=== PATIENT | male | born 1960 | race Caucasian/White ===

== ENCOUNTER 2025-03-30 21:33 | Emergency (ER) | payer MEDICARE, MEDICAID, SELFPAY ==
[2025-03-30] VITALS (13 sets, daily range): BP systolic 114–148; BP diastolic 68–78; PULSE 92; RESP 16; TEMP 36.6; O2SAT 97–100
--- NOTE | ~2025-03-30 | XR_ITS ---
HISTORY: fall COMPARISON: None TECHNIQUE: 3 views of the right elbow were performed FINDINGS: No acute displaced fracture is identified. No elevation of the anterior or posterior fat pads are identified to suggest a supracondylar fracture . Overlying soft tissues are unremarkable. Bone mineralization is age-appropriate. IMPRESSION: No acute fracture or dislocation, as detailed above Reviewed, dictated and finalized at location A.
--- NOTE | ~2025-03-30 | XR_ITS ---
HISTORY: fall COMPARISON: None TECHNIQUE: 3 views of the thoracic spine were performed FINDINGS: 16 degrees of levoscoliotic curvature of the thoracic spine is present. Diffuse bony demineralization is also noted. No acute compression fracture is present. Biconcave vertebral body shape within the mid to upper thoracic spine. IMPRESSION: Diffuse bony demineralization with findings suggesting osteoporosis versus sickle cell d isease. Reviewed, dictated and finalized at location A. IMPRESSION: Diffuse bony demineralization with findings suggesting osteoporosi s versus sickle cell disease.
--- NOTE | ~2025-03-30 | XR_ITS ---
HISTORY: fall COMPARISON: None. TECHNIQUE: 2 view lumbar spine. FINDINGS: 9 mm of anterolisthesis of L5 onto L6 is identified. Remaining lumbar vertebral bodies are otherwise normally aligned. There are 6 non-rib bearing lumbar vertebral bodies. Disc spaces and vertebral body heights are well maintained. There are no lytic or sclerotic lesions. Paraspinal soft tissues demonstrate calcification of the infrarenal abdominal aorta. Osteophyte formation and disc space narrowing is identified at the level of L2/L3, L3/L4 and L4/L5 Significant facet arthropathy is also noted. No discrete fracture is appreciated IMPRESSION: Degenerative disease, without acute fracture identified. Reviewed, dictated and finalized at location A.
--- OUTSIDE RECORDS SUMMARY | 2025-03-30 23:56 | XMS_ITS | Clinical Summary ---
Author Organization [facility] Address [address], [facility] [address] [place] [address] Phone Care Team Providers Care Carpentry Specialist Name Role Phone Gina Cutler DPM Unavailable [phone] Lamont Freeman MD Unavailable [phone] Allergies No known active allergies Medications * This document contains information received from the source organization and may not represent a complete record from that organization. risperiDONE (RISPERDAL) 2 MG Tablet Take 1 Tablet by mouth 2 times daily. 60 Tablet 6 1 Active Additional Information Patient not taking.Reported on 11/12/2023 lithium 300 MG Capsule 2 Active Sofosbuvir-Velp atasvir (Epclusa) 400-100 MG TabletIndicatio ns:Chronic hepatitis C without hepatic coma (HCC) Take 1 Tablet by mouth daily (with lunch). 84 Tablet 2 Active Additional Information Patient not taking.Reported on 11/12/2023 famotidine (PEPCID) 40 MG Tablet Take 1 Tablet by mouth 2 times daily. 180 Tablet 9 2 Active Additional Information Patient not taking.Reported on 11/12/2023 OLANZapine (ZYPREXA) 10 MG Tablet Take 10 mg by mouth nightly. 3 Active sildenafil citrate (VIAGRA) 100 MG Tablet Take 1 Tablet by mouth as needed for Erectile Dysfunction. 10 Tablet 3 Active Additional Information Patient not taking.Reported on 11/12/2023 cyclobenzaprine (FLEXERIL) 10 MG Tablet Take 1 tablet by mouth three times daily as needed for muscle spasm 90 Tablet 3 Active Additional Information Patient not taking.Reported on 11/12/2023 pantoprazole (PROTONIX) 40 MG Tablet Delayed Response Take 1 Tablet by mouth daily. 30 Tablet 5 Active Additional Information Patient not taking.Reported on 10/26/2024 Active Problems Problem Noted Date Diagnosed Date Chronic hepatitis C without hepatic coma 021 Positive hepatitis C antibody test 07/14/2021 Resolved Problems Problem Noted Date Diagnosed Date Resolved Date Loyola's esophagus with dysplasia 07/14/2021 09/17/2022 Immunizations Immunization Administration Dates Next Due Covid-19 Vaccine, Vector-nr, Rs-ad26, Pf, 0.5 Ml ([employer]) 12/17/2020 Influenza Vaccine, Quadrivalent, PF 10/20/2022,1 08/26/2020 Family History Medical History Relation Name Comments No Known Problems Brother Cancer Father Hypertension Father No Known Problems Maternal Aunt No Known Problems Maternal Grandfather No Known Problems Maternal Grandmother No Known Problems Maternal Uncle Asthma Mother Hypertension Mother No Known Problems Other No Known Problems Paternal Aunt No Known Problems Paternal Grandfather No Known Problems Paternal Grandmother No Known Problems Paternal Uncle No Known Problems Sister Relation Name Status Comments Brother Father Maternal Aunt Maternal Grandfather Maternal Grandmother Maternal Uncle Mother Other Paternal Aunt Paternal Grandfather Paternal Grandmother Paternal Uncle Sister Social History Tobacco Use Types Packs/Day Years Used Date Smoking Tobacco: Every Day Cigarettes Smokeless Tobacco: Never Tobacco Cessation:Ready to Q uit: No; Counseling Given: No Alcohol Use Standard Drinks/Week Comments Not Currently 0 (1 standard drink = 0.6 oz pur e alcohol) PHQ-2 Answer Date Recorded Total Score - Questions 1-9 7 09/24 Sexually Active Control Partners Comments Not Currently Sex and Gender Information Value Date Recorded Sex Assigned at Not on file Legal Sex Male 7:50 PM CDT Gender Identity Not on file Sexual Orientation Not on file Last Filed Vital Signs Vital Sign Reading Time Taken Comments Blood Pressure 114/72 09/22/2024 7:00 PM ORGAN GRINDER Pulse 85 09/22/2024 7:00 PM ORGAN GRINDER Temperature 36.4 C (97.6 F) 09/22/2024 2:31 PM ORGAN GRINDER Respiratory Rate 15 09/22/2024 5:45 PM ORGAN GRINDER Oxygen Saturation 97% 09/22/2024 7:00 PM ORGAN GRINDER Inhaled Oxygen Concentration - - Weight 54.6 kg (120 lb 5.9 oz) 09/22/2024 2:31 P M ORGAN GRINDER Height 160 cm (5' 3) 09/22/2024 2:31 PM ORGAN GRINDER Body Mass Index 21.32 09/22/2024 2:31 PM ORGAN GRINDER Plan of Treatment Health Maintenance Due Date Last Done Comments TdaP Immunization 1960 Pneumococcal Immunization (5 0+ years) (1 of 2 - PCV) 1977 Cologuard 2003 Zoster Immunization (1 of 2) 2008 Hepatitis B Immunization (1 of 3 - Risk 3-dose series) 2018 Respiratory Syncytial Virus (RSV) Immunization (Adult) (1 - Risk 60-74 years 1-dose series) 2018 AAA Screening Ultrasound 2023 SARS-COV-2 Immunization ( - 2023- season) 2024 07/01/2021, 12/17/2020 Colonoscopy 08/13/2024 08/13/2021 Colorectal Cancer Screening 09/23/2024 Influenza Immunization (#1) 04/23/202509/24, 06/26/2021 Immunochemical Fecal Occult Blood 09/22/2025 09/22/2024 PSA Discussion Completed 06/26/2021 Human Papillomavirus (HPV) Immunization Aged Out No longer eligible b ased on patient's age to complete this topic Meningococcal Immunization (ACWY) Aged Out No longer eligible b ased on patient's age to complete this topic Rotavirus Immunization Aged Out No lo nger eligible based on patient's age to complete this topic Procedures Procedure Name Priority Date/Time Associated Diagnosis Comments STOOL, OCCULT BLOOD, DIAGNOSTIC, VIA GUAIAC STAT 09/22/2024 6:13 PM ORGAN GRINDER PSA SCREEN Today 06/26/2021 10:43 AM CDT Screening for prostate cancer from Last 3 Months or Most Recently Relevant to Health Maintenance Results * Stool, Occult Blood, Diagnostic (09/22/2024 6:13 PM ORGAN GRINDER) OCCULT BLOOD DIAG Negative Negative 09/22/2024 6:43 PM ORGAN GRINDER [facility] Stool STOOL SPECIMEN / Unknown Non-Phlebotomy Collection / Unknown 09/22/2024 6:13 PM ORGAN GRINDER 09/22/2024 6:39 PM ORGAN GRINDER Narrative [facility] - 09/22/2024 6:43 PM ORGAN GRINDER Carlo Rosen DO BODY FLUIDS & STOOLS OR DERABLES Final Result Performing Organization Address City/[facility]/ZIP Co de Phone Number [facility] [address] [place] [address] * PSA SCREEN (06/26/2021 10:43 AM CDT) Pathologist [facility] PSA SCREEN, TOTAL 3.33 <=4.00 ng/mL 06/26/2021 12:58 PM CDT [facility] Blood Venipuncture / Unknown 06/26/2021 10:43 AM CDT 06/26/2021 10:43 AM CDT Narrative [facility] - 06/26/2021 12:58 PM CDT PSA NOTE: The PSA value should be used in conjunction with information available from clinical evaluation and other diagnostic procedures. us Jamil Garcia MD CHEMISTRY ORDERABLES Final Re sult [facility] [address] [place] [address] from Last 3 Months or Most Recently Relevant to Health Maintenance Insurance MEDICAID [place] MEDICARE C [employer] Care Teams Carpentry Specialist Relationship Specialty Start Date End Date Gina Cutler DPM Consulting Physician Podiatry 07/07/22 Lamont Freeman MD [address] [place] [address] Consulting Physician Gastroenterology 09/17/22
--- OUTSIDE RECORDS SUMMARY | 2025-03-30 23:56 | XMS_ITS ---
Author Organization [facility] Address [address] [place] [address] Care Team Providers Care Gate Watch Name Role Phone Hector Landeros Primary Care Provider [phone] Naresh Ballard Unavailable [phone] REASON FOR VISIT UDS QM orders Encounters Encounter Location Date Provider Diagnosis [facility] [address] [place] [address] 03/28/2025 Naresh Ballard Encounter for screening for malignant neoplasm of colon Z12.11 Assessments Encounter Date Diagnosis (ICD Code) Assessment Notes Treatment Notes Treatment Clinical Notes Section Notes 03/28/2025 Encounter for screening for malignant neoplasm of colon (ICD-10 - Z12.11) Patient Educated with: Fecal Occult Blood Test.pdf (Fecal Occult Blood Test.pdf) Plan Of Treatment Treatment Notes Assessment Notes Encounter for screening for malignant neoplasm of colon Patient Educated with: Fecal Occult Bloo d Test.pdf (Fecal Occult Blood Test.pdf) Future Test Test Name Order Date Occult Blood, Fecal, [place] ([id number]) 025 Next Appt Details Provider Name:Kp pedraza, 04/02/2025 09:00:00 AM, [address], [place], [address], Provider Name:Demi duncan, 04/04/2025 11:00:00 AM, [address], [place], [address], Progress Notes * Jackson FORBES SrDOB:1960 (65 yo M)Acc No.[id number]:03/28/2025 UNLOCKED PROGRESS NOTE Patient: Jackson FLOWERS Sr :1960 A ge:65 Y S ex:Male Address:[address] [place] [address], [id number] Subjective: * Chief Complaints: * U DS QM orders * Medical History: * Surgical History: * Hospitalization/Major Diagno stic Procedure: * Medications: Objective: * Vitals: * Physical Examination: Assessment: * Assessment: 1. E ncounter for screening for malignant neoplasm of colon - Z12.11 Plan: * Treatment: * Procedure Codes: * * Date:
--- OUTSIDE RECORDS SUMMARY | 2025-03-30 23:56 | XMS_ITS | Patient Health Record ---
Author Organization [facility] Address [address] [place] [address] Care Team Providers Care Grey Roll Man Name Role Phone Leti Gwendolynelke Primary Care Provider Naresh Ballard Unavailable [phone] Kirsty Cross Unavailable [phone] Kp Goldberg Unavailable [phone] Results Component Value Reference Range Notes 14 Panel Urine Drug Screen Reviewed date:03/27/2025 02:48:08 PM Interpretation: Performing Lab: Notes/Report: THC neg NICHELLE neg MOP (OPI) neg AMP POS MET POS BAR neg BZO neg MDMA neg MTD neg OXY neg PCP neg BUP neg TCA neg FTY neg CBC With Differential/Platel et* Reviewed date:03/30/2025 08:44:44 AM Interpretation: Performing Lab:[facility] [place], [address] [facility], [place], Phone - [phone], Director - PhDRicchidewaynei Notes/Report: WBC 6.7 3.4-10.8 x10E3/uL RBC 4.36 4.14-5.80 x10E6/uL Hemoglobin 10.0 13.0-17.7 g/dL Hematocrit 33.5 37.5-51.0 % MCV 77 79-97 fL MCH 22.9 26.6-33.0 pg MCHC 29.9 31.5-35.7 g/dL RDW 17.1 11.6-15.4 % Platelets 419 150-450 x10E3/uL Neutrophils 55 Not Estab. % Lymphs 34 Not Estab. % Monocytes 8 Not Estab. % Eos 2 Not Estab. % Basos 1 Not Estab. % Neutrophils (Absolute) 3.8 1.4-7.0 x10E3/uL Lymphs (Absolute) 2.3 0.7-3.1 x10E3/uL Monocytes(Absolute) 0.5 0.1-0.9 x10E3/uL Eos (Absolute) 0.1 0.0-0.4 x10E3/uL Baso (Absolute) 0.1 0.0-0.2 x10E3/uL Immature Granulocytes 0 Not Estab. % Immature Grans (Abs) 0.0 0.0-0.1 x10E3/uL Hematology Comments: Note: Verifie d by microscopic examination. CMP 14 Comprehensive Metabol ic Panel* Reviewed date:03/30/2025 08:44:44 AM Interpretation: Performing Lab:[facility] [address] [facility], Phone - [phone], Director - [facility] Notes/Report: Glucose 123 70-99 mg/dL BUN 16 8-27 mg/dL Creatinine 0.82 0.76-1.27 mg/dL eGFR 96 >59 mL/min/1.73 BUN/Creatinine Ratio 20 10-24 Sodium 138 134-144 mmol/L Potassium 4.3 3.5-5.2 mmol/L Chloride 100 96-106 mmol/L Carbon Dioxide, Total 22 20-29 mmol/L Calcium 9.0 8.6-10.2 mg/dL Protein, Total 7.2 6.0-8.5 g/dL Albumin 4.4 3.9-4.9 g/dL Globulin, Total 2.8 1.5-4.5 g/dL Bilirubin, Total 0.3 0.0-1.2 mg/dL Alkaline Phosphatase 49 44-121 IU/L AST (SGOT) 31 0-40 IU/L ALT (SGPT) 18 0-44 IU/L HIV Screen *HIV 1, 2 Ab, p24 Ag ([id number]) Reviewed date:03/30/2025 08:44:43 AM Interpretation: Performing Lab:[facility] [address] [facility], Phone - [phone], Director - [facility] Notes/Report: HIV Ab/p24 Ag Screen Non Reactive Non Reactive HIV-1/HIV-2 antibodies and HIV-1 p24 antigen were NOT detected. There is no laboratory evidence of HIV infection. HIV Negative Breathalyzer Reviewed date:03/27/2025 02:45:53 PM Interpretation: Performing Lab: Notes/Report: ALEXANDRU 0.000 QuantiFERON-TB Gold Plus ([id number]) Reviewed date:03/30/2025 08:44:43 AM Interpretation: Performing [facility], [address] [facility], [place], Phone - [phone], Director - [facility] Notes/Report: QuantiFERON Incubation Incubation performed. QuantiFERON-TB Gold Plus Negative Negative No response to M tuberculosis antigens detected. Infection with M tuberculosis is unlikely, but high risk individuals should be considered for additional testing (ATS/IDSA/CDC Clinical Practice Guidelines, 2017). The reference range is an Antigen minus Nil result of <0.35 IU/mL. Chemiluminescence immunoassay methodology QuantiFERON Criteria QuantiFERON-TB Gold Plus is a qualitative indirect test for M tuberculosis infection (including disease) and is intended for use in conjunction with risk assessment, radiography, and other medical and diagnostic evaluations. The QuantiFERON-TB Gold Plus result is determined by subtracting the Nil value from either TB antigen (Ag) value. The Mitogen tube serves as a control for the test. QuantiFERON TB1 Ag Value 0.04 QuantiFERON TB2 Ag Value 0.04 QuantiFERON Nil Value 0.02 QuantiFERON Mitogen Value >10.00 Reason For Referral No Information Medications Medication SIG (Take, Route, Frequency, Duration) Notes Start Date End Date Status Nicotine 21 MG/24HR 1 patch to skin. Transdermal Once a day, removing at bedtime; Duration: 28 days 03/27/2025 Active Multi Vitamin - 1 tablet Orally Once a day; Duration: 30 days 03/27/2025 Active Melatonin 5 MG 1 tablet at bedtime as needed Orally Once a day; Duration: 30 days 03/27/2025 Active Albuterol Sulfate HFA 108 (90 Base) MCG/ACT 1-2 puffs as needed Inhalation every 4 hrs 03/28/2025 Active Nicotine Polacrilex 4 MG 1 lozenge as ne eded for nicotine cravings Mouth/Throat Up to once per hour (maximum of 15 lozenges per day); Duration: 7 days 03/27/2025 Active hydrOXYzine Pamoate 25 MG 1-2 capsules O rally every 4 hours as needed for anxiety, agitation, or inability to sleep. Do not give within 4 hours of diphenhydramine.; Duration: 30 days 03/27/2025 Active Acetaminophen Extra Strength 500 MG 1 tablets as needed Orally every 6 hrs; Duration: 28 days 03/27/2025 Active Social History Tobacco Use: Social History Observation Description Date Details (start date - stop date) Current Smoker NA - NA PRAPARE Question Answer Notes Date Completed/Updated: 03/27/2025 What is your current housing situation? I do not have housing (staying with others, in a hotel, in a group home, living outside on the street, on a beach, or in a park) Are you worried about losing your housing? Yes What is the highest level of school that you have finished? High school diploma or GED What is your current work situation? Oth erwise unemployed but not seeking work (ex. student, retired, disabled, unpaid primary geriatric personal care aide) In the past year, have you o r any family members you live with been unable to get any of the following when it was really needed? Check all that apply Food,Clothing,Utilities,Phone Has lack of transportation k ept you from medical appointments, meetings, work or from getting things needed for daily living? Yes, it has kept me from medical appointments or from getting my medications,Yes, it has kept me from non-medical meetings, appointments, work, or getting things needed for daily living How often do you see or talk to people that you care about and feel close to? (For example: talking to friends on the phone, visiting friends or family, going to orthodox or club meetings) More than 5 times a week How stressed are you? Stress is when someone feels tense, nervous, anxious, or can\t sleep at night because their mind is troubled Very much In the past year have you sp ent more than 2 nights in a row in a snf, penitentiary, jail center, or juvenile correctional facility? No Are you a refugee? I choose not to answer this q uestion What country are you from? I choose not to answe r this question Do you feel physically and e motionally safe where you currently live? No In the past year, have you b een afraid of your partner or ex-partner? Yes PRAPARE Score: 15 Enabling Services Provided? Yes Please specify Case Management Asse ssment First Visit,Referral for Housing Services Tobacco Control (Standard) Question Answer Notes Tobacco use: Current smoker How often do you smoke cigarettes? Every day Problems Problem Type SNOMED Code ICD Code Onset Dates Problem Status W/U Status Risk Notes Problem Shortness of breath (499825527) Shortness of breath (R06.02) Active confirmed Problem Substance abuse (6730288645) Substance abuse (F19.10) Active confirmed Problem Right shoulder pain (2650699297) Right shoulder pain (M25.511) Active confirmed Problem Overweight (200178861) Over weight (E66.3) Active confirmed Problem Adult health examination (822829069) Adult general medical exam (Z00.00) Active confirmed Problem Depressed mood (669671672) Depressed mood (F32.9) Active confirmed Problem Patient underweight (637527435) Patient underweight (R63.6) Active confirmed Problem Tobacco user (618031510) Smokes with greater than 40 pack year history (F17.210) Active confirmed Vital Signs Heart Rate 64 /min 03/28/2025 patient c/o cou gh with mucous at times, SOB Temperature 97.8 degrees Fahrenheit 03/28/2025 cesar ent c/o cough with mucous at times, SOB Respiratory Rate 18 /min 03/28/2025 patient c/o cough with mucous at times, SOB Blood pressure diastolic 58 mm Hg 03/28/2025 pat ient c/o cough with mucous at times, SOB Oximetry 100 % 03/28/2025 patient c/o cou gh with mucous at times, SOB Height 64 in 03/28/2025 patient c/o cou gh with mucous at times, SOB Blood pressure systolic 98 mm Hg 03/28/2025 cesar ent c/o cough with mucous at times, SOB Weight 110.0 lbs 03/28/2025 patient c/o cou gh with mucous at times, SOB BMI 18.88 kg/m2 03/28/2025 patient c/o cou gh with mucous at times, SOB Encounters Encounter Location Date Provider Diagnosis [facility] [address] [place] [address] 03/27/2025 Kp Goldberg Adult general medical exam Z00.00 ; Right shoulder pain M25.511 and Patient underweight R63.6 [facility] [address] [place] [address] 03/27/2025 Kirsty Tay Substance abuse F19.10 and Depressed mood F32.9 [facility] [place] [address] 03/28/2025 Kp Goldberg Shortness of breath R06.02 and Smokes with greater than 40 pack year history F17.210 [address] [place] [address] 03/28/2025 Naresh Gantner Encounter for screening for malignant neoplasm of colon Z12.11 Assessments Encounter Date Diagnosis (ICD Code) Assessment Notes Treatment Notes Treatment Clinical Notes Section Notes 03/27/2025 Substance abuse (ICD-10 - F19.10) 03/27/2025 Depressed mood (ICD-10 - F32.9) 03/27/2025 Right shoulder pain (ICD-10 - M25.511) 03/27/2025 Adult general medical exam (ICD-10 - Z00.00) SUPR Programs: Based on an evaluation of [facility] Patient Placement Criteria, a recommendation for placement in Level III treatment is indicated and approved. Confirmation of diagnosis is documented in the initial treatment plan.Admit to the Mental Health/Crisis Residential Unit and initiate standing/protocol orders: The following PRN medications may be self-administered by patients under the supervision of approved staff or administered by nursing staff: Ibuprofen 200mg, 2-4 tablets by mouth (with food) every 6 hours as needed for pain (unless on lithium). (NOTE: Ibuprofen and acetaminophen may be given together, but alternating is recommended for continuous pain relief. Guaifenesin 400 mg, 1 tablet by mouth every four hours as needed for cough and chest congestion (take with large glass of water). Loratadine 10 mg, 1 tablet by mouth daily as needed for allergies, watery itchy eyes, or sinus drainage. Throat Lozenges, up to 4 tablets by mouth every three to four hours as needed for sore throat. Antacid tablets, 1-2 tablets by mouth every one to two hours as needed for indigestion or heart burn. If the client prefers liquid, could use: Liquid Antacid : 1 ounce by mouth up to four times daily as needed for indigestion or heartburn Omeprazole 20mg, 1 capsule by mouth once daily for 14 days for frequent heartburn (frequent heartburn is more than 2 episodes per week). Do not exceed 14 days. Do not give to client already taking a proton-pump inhibitor: esomeprazole (Nexium), lansoprazole (Prevacid), pantoprazole (Protonix), rabeprazole (Aciphex), dexlansoprazole (Dexilant) Zofran ODT disintegrating (under the tongue) 4 mg, 1-2 tablets every 8 hours as needed for nausea/vomiting. Milk of Magnesia (MOM): 1 ounce (30 milliliters) by mouth every day as needed for constipation. OR Miralax: Stir and fully dissolve 17 grams (1 packet or 1 capful to measured line) in any 4 to 8 ounces of beverage then drink once daily for constipation. Do not use for more than 7 days. OR Docusate 100 mg, 1 capsule twice daily as needed for constipation Hydrocortisone 1% Cream, apply topically (to the skin) to the affected area up to three times daily as needed for itching or inflammation (avoid eyes and genitals). 2% Antifungal Cream, apply topically (to the skin) as directed as needed to affected areas for athlete's foot or jock itch. Triple Antibiotic Ointment, apply topically (to the skin) up to three times daily as needed for minor cuts and scrapes. Carmex or Chapstick, apply topically (to the skin) as needed for chapped lips and skin. Orajel, apply to affected areas as needed for mouth or tooth pain. Lubricating Eye Drops, instill 1-2 drops to the affected eye(s) as needed for dry/irritated eye(s). Hemorrhoid medications, apply to affected area according to directions as needed for hemorrhoid discomfort and itch. Nix (Permethrin 1%) cream 2 ounces, apply topically (to the skin) as directed as needed for head lice. Sunscreen 30 SPF, Apply to exposed skin prior to exposure to sun. The following PRN medications must be approved by nursing staff before self-administration by patients: Diphenhydramine 25 mg, 2 tablets by mouth every 4 hours as needed for allergic reaction or itchy rash. Caution: Do not use hydroxyzine within 4 hours of diphenhydramine and vice versa. Loperamide 2 mg capsules, may give two capsules by mouth for the initial dose, followed by one capsule up to 3 times a day as needed for diarrhea. Acetaminophen 500 mg, 1 - 2 tablets by mouth every six hours as needed for pain. (NOTE: Ibuprofen and acetaminophen may be given together, but alternating is recommended for continuous pain relief). Oxygen-May administer oxygen 2L/min via nasal cannula if O2 saturation is less than 92%, AND client complains of shortness of breath. Target O2 saturation is 94-98%. Caution: Remember too much oxygen can be detrimental to a client with COPD. Oxygen is a drug and should be delivered by trained staff only. Nurses may remove superficial splinters and sutures from skin lacerations. May apply gauze or bandages to any weeping wounds. Contact nursing if there is pus, a foul odor, increased pain/redness/swelli ng, or if soaking through bandages. 03/28/2025 Encounter for screening for malignant neoplasm of colon (ICD-10 - Z12.11) Patient Educated with: Fecal Occult Blood Test.pdf (Fecal Occult Blood Test.pdf) 03/28/2025 Shortness of breath (ICD-10 - R06.02) LIGHT ACTIVITY, can still attend group. Educated the patient on if CP starts to occur, leg swelling, worst headache of his life, or any alarming symptoms to tell a staff member and for the patient to go to the ER. Educated the patient on taking albuterol PRN every 4 hours as needed and educated him on proper inhaler technique. 03/28/2025 Smokes with greater than 40 pack year history (ICD-10 - F17.210) 03/27/2025 Patient underweight (ICD-10 - R63.6) 03/27/2025 Other Continue treatment as recommended by [facility] staff. Encouraged patient to obtain routine medical care with patient's own primary care provider or establish as a patient at [facility] if no current primary care provider. 03/27/2025 Other Clinician met w ith client to assess needs for residential services. Clinician gathered information regarding historical presentation of mental health and substance use symptoms including withdrawal, HIV Risk assessment, psychiatric hospitalization history and presenting concern. Clinician conducted PHQ9 and CSSRS assessments as well as social drivers of health screening for the purposes of identifying additional service needs. Plan Of Treatment Future Test Test Name Order Date Chest X-ray PA and lateral 03/28/2025 Electrocardiogram (EKG) 03/28/2025 Pulmonary Function Test 03/28/2025 Lexiscan Stress Nuclear Test 03/28/[address]: Lung Cancer Screening 03/28 Next Appt Details Provider Name:Kp pedraza, 04/02/2025 09:00:00 AM, [address], [place], [address], Provider Name:Demi duncan, 04/04/2025 11:00:00 AM, [address], [place], [address], Insurance Providers Payer Name Payer Address Payer Phone Subscriber Number Group Number Insured Name Patient Relationship to Insured Coverage Start Date Coverage End Date [facility] [address] [address] [place] [address] [id number] Jackson Forbes Self - patient is the insured 5 Medical (General) History Medical History History ICD Code barrettes disease schizophrenia
--- OUTSIDE RECORDS SUMMARY | 2025-03-30 23:57 | XMS_ITS | Encounter Summary ---
Author Organization [facility] Address [address] [facility] [place] [address] Phone Care Team Providers Care Sidehand Name Role Phone Jamil Garcia MD Primary Care Provider Gina Cutler DPM Unavailable Lamont Freeman MD Unavailable [phone] Shari Arias SUPERVISOR CHASSIS ASSEMBLY Unavailable Unavailab le Reason for Visit * Reason Comments Medication Refill Encounter Details Date Type Department Care Team (Late st Contact Info) Description 11/21/2022 Refill [facility] - Family Medicine [facility] [address] [place] [id number] Jamil Garcia MD [address] [address] Medication Refill Social History Tobacco Use Types Packs/Day Years Used Date Smoking Tobacco: Every Day Cigarettes Smokeless Tobacco: Never Alcohol Use Standard Drinks/Week Comments Not Currently [...] on file Sexual Orientation Not on file COVID-19 Exposure Response Date Recorded In the last 10 days, have yo u been in contact with someone who was confirmed or suspected to have Coronavirus/COVID-19? No / Unsure 10/23/2022 1:43 PM BUSINESS SERVICES DIRECTOR documented as of this encounter Miscellaneous Notes * Telephone Encounter - Marti Ruffin RN - 11/23/2022 9:26 AM CDT Medication failed the protocol, provider to review and approve the medication order if appropriate. Requested Prescriptions Pending Prescriptions Disp Refills cyclobenzaprine (FLEXERIL) 10 MG Tablet [Pharmacy Med Name: Cyclobenzaprine HCl 10 MG Oral Tablet] 90 Tablet 0 Sig: Take 1 tablet by mouth three times daily as needed for muscle spasm Not Delegated - Muscle Relaxants Protocol Failed - 11/21/2022 9:19 AM Failed - This refill cannot be delegated Passed - Visit with relevant provider in past 12 months or upcoming 90 days Recent Visits Date Type Provider Dept 10/20/22 Office Visit Jamil Garcia MD [facility] 06/17/22 Office Visit Jamil Garcia MD [facility] Showing recent visits within past 365 days and meeting all other requirements Future Appointments Date Type Provider Dept 02/17/23 Appointment Jamil Garcia MD [facility] Show[facility] future appointments within next 90 days and meeting all other requirements documented in this encounter Plan of Treatment Not on file documented as of this encounter Visit Diagnoses Not on filedocumented in this encounter Additional Health Concerns Infection Onset Date Last Indicated Resolved Time COVID - 19 09/22/2024 09/22/2024 09/22/2024 4:21 PM BUSINESS SERVICES DIRECTOR Assessment Noted Time PHQ-9 Depression Total Score: 7 10/20/19 23 1:00 PM BUSINESS SERVICES DIRECTOR documented as of this encounter Care Teams Sidehand Relationship Specialty Start Date End Date Jamil Garcia MD [address] [address] PCP - General Family Medicine 06/26/21 12/17/24 Gina Cutler DPM [address] [address] Consulting Physician Podiatry 07/07/22 Lamont Freeman MD [address] [place] [address] Consulting Physician Gastroenterology 09/17/22 Shari Arias LSW [place] Manager Logistic Construction Management Instructor 11/15/23 4 documented as of this encounter
--- OUTSIDE RECORDS SUMMARY | 2025-03-30 23:57 | XMS_ITS | Encounter Summary ---
Author Organization [facility] Address [address] [facility] [place] [address] Phone Care Team Providers Care Paper Bag Inspector Name Role Phone Jamil Garcia MD Primary Care Provider Gina Cutler DPM Unavailable Lamont Freeman MD Unavailable [phone] Shari Arias RUBBER GOODS INSPECTOR Unavailable Unavailab le Reason for Visit * Reason Comments Medication Refill Encounter Details Date Type Department Care Team (Late st Contact Info) Description 08/24/2022 Refill [facility] - Family Medicine [facility] [address] [place] [phone] Jamil Garcia MD [address] [address] Medication Refill Social History Tobacco Use Types Packs/Day Years Used Date Smoking Tobacco: Every Day Cigarettes Smokeless Tobacco: Never Alcohol Use Standard Drinks/Week Comments Not Currently 0 (1 standard drink = 0.6 oz pur e alcohol) PHQ-2 Answer Date Recorded Total Score - Questions 1-9 0 05/24 Sexually Active Control Partners Comments Not Currently [...] suspected to have Coronavirus/COVID-19? No / Unsure 07/28/2022 10:41 AM LAND EXAMINER documented as of this encounter Miscellaneous Notes * Telephone Encounter - Marti Ruffin RN - 08/25/2022 2:22 PM CST Medication failed the protocol, provider to review and approve the medication order if appropriate. Requested Prescriptions Pending Prescriptions Disp Refills cyclobenzaprine (FLEXERIL) 10 MG Tablet [Pharmacy Med Name: Cyclobenzaprine HCl 10 MG Oral Tablet] 90 Tablet 0 Sig: Take 1 tablet by mouth three times daily as needed for muscle spasm Not Delegated - Muscle Relaxants Protocol Failed - 08/24/2022 12:35 PM Failed - This refill cannot be delegated Passed - Visit with relevant provider in past 12 months or upcoming 90 days Recent Visits Date Type Provider Dept 06/17/22 Office Visit Jamil Garcia MD [facility] Showing recent visits within past 365 days and meeting all other requirements Future Appointments Date Type Provider Dept 10/20/22 Appointment Jamil Garcia MD [facility] Showing future appointments within next 90 days and meeting all other requirements EXAMINER documented in this encounter Plan of Treatment Not on file documented as of this encounter Visit Diagnoses Not on filedocumented in this encounter Additional Health Concerns Infection Onset Date Last Indicated Resolved Time COVID - 19 09/22/2024 09/22/2024 09/22/2024 4:21 PM LAND EXAMINER Assessment Noted Time PHQ-9 Depression Total Score: 0 06/17/20 12:00 PM CDT documented as of this encounter Care Teams Paper Bag Inspector Relationship Specialty Start Date End Date Jamil Garcia MD [address] [address] PCP - General Family Medicine 06/26/21 12/17/24 Gina Cutler DPM #[address] [address] Consulting Physician Podiatry 07/07/22 Lamont Freeman MD [address] [place] [address] Consulting Physician Gastroenterology 09/17/22 Shari Arias LSW ND Manager Skilled Ballistics Tester 11/15/23 4 documented as of this encounter
--- OUTSIDE RECORDS SUMMARY | 2025-03-30 23:57 | XMS_ITS | Encounter Summary ---
Author Organization [facility] Address [address] [facility] [place] [address] Phone Care Team Providers Care Upholstery Cutter Name Role Phone Jamil Garcia MD Primary Care Provider Gina Cutler DPM Unavailable Lamont Freeman MD Unavailable [phone] Shari Arias BETTING AGENCY MANAGER Unavailable Unavailab le Reason for Visit * Reason Comments Medication Refill Encounter Details Date Type Department Care Team (Late st Contact Info) Description 12/28/2022 Refill [facility] #2 [place] [phone] Jamil Garcia MD [address] [address] Medication Refill Social History Tobacco Use Types [...] on file Sexual Orientation Not on file documented as of this encounter Miscellaneous Notes * Telephone Encounter - Marti Ruffin RN - 12/29/2022 11:15 AM CDT Medication failed the protocol, provider to review and approve the medication order if appropriate. Requested Prescriptions Pending Prescriptions Disp Refills cyclobenzaprine (FLEXERIL) 10 MG Tablet [Pharmacy Med Name: Cyclobenzaprine HCl 10 MG Oral Tablet] 90 Tablet 0 Sig: Take 1 tablet by mouth three times daily as needed for muscle spasm Not Delegated - Muscle Relaxants Protocol Failed - 12/28/2022 5:41 PM Failed - This refill cannot be delegated Passed - Visit with relevant provider in past 12 months or upcoming 90 days Recent Visits Date Type Provider Dept 10/20/22 Office Visit Jamil Garcia MD [facility] 06/17/22 Office Visit Jamil Garcia MD [facility] Showing recent visits within past 365 days and meeting all other requirements Future Appointments Date Type Provider Dept 02/17/23 Appointment Jamil Garcia MD [facility] Showing future appointments within next 90 days and meeting all other requirements documented in this encounter Plan of Treatment Not on file documented as of this encounter Visit Diagnoses Not on filedocumented in this encounter Additional Health Concerns Infection Onset Date Last Indicated Resolved Time COVID - 19 09/22/2024 09/22/2024 09/22/2024 4:21 PM AUTO BRAKE TECHNICIAN Assessment Noted Time PHQ-9 Depression Total Score: 7 10/20/19 23 1:00 PM AUTO BRAKE TECHNICIAN documented as of this encounter Care Teams Upholstery Cutter Relationship Specialty Start Date End Date Jamil Garcia MD [address] [address] PCP - General Family Medicine 06/26/21 12/17/24 Gina Cutler DPM #[address] [address] Consulting Physician Podiatry 07/07/22 Lamont Freeman MD #2 [place] [address] Consulting Physician Gastroenterology 09/17/22 Shari Arias LSW [place] Human Resources Executive Assistant Overedge Machine Operator 11/15/23 4 documented as of this encounter
--- OUTSIDE RECORDS SUMMARY | 2025-03-30 23:57 | XMS_ITS | Encounter Summary ---
Author Organization [facility] Address [address] [facility] [place] [address] Phone Care Team Providers Care Historical Site Guide Name Role Phone Jamil Garcia MD Primary Care Provider Gina Cutler DPM Unavailable Lamont Freeman MD Unavailable Shari Arias CAN PATCHER Unavailable Unavailab le Reason for Visit * Reason Comments Medication Refill Encounter Details Date Type Department Care Team (Late st Contact Info) Description 10/03/2022 Refill [facility] [address] [place] [phone] Jamil Garcia MD [address] [address] Medication Refill Social History Tobacco Use Types [...] suspected to have Coronavirus/COVID-19? No / Unsure 09/17/2022 1:39 PM PROPERTY DAMAGE CLAIMS ADJUSTOR documented as of this encounter Miscellaneous Notes * Telephone Encounter - Marti Ruffin RN - 10/05/2022 9:34 AM CST Medication failed the protocol, provider to review and approve the medication order if appropriate. Requested Prescriptions Pending Prescriptions Disp Refills cyclobenzaprine (FLEXERIL) 10 MG Tablet [Pharmacy Med Name: Cyclobenzaprine HCl 10 MG Oral Tablet] 90 Tablet 0 Sig: TAKE 1 TABLET BY MOUTH THREE TIMES DAILY NEEDED FOR MUSCLE SPASMS Not Delegated - Muscle Relaxants Protocol Failed - 10/03/2022 8:02 AM Failed - This refill cannot be delegated Passed - Visit with relevant provider in past 12 months or upcoming 90 days Recent Visits Date Type Provider Dept 06/17/22 Office Visit Jamil Garcia MD [facility] Showing recent visits within past 365 days and meeting all other requirements Future Appointments Date Type Provider Dept 10/20/22 Appointment Jamil Garcia MD [facility] Showing future appointments within next 90 days and meeting all other requirements ERTY DAMAGE CLAIMS ADJUSTOR documented in this encounter Plan of Treatment Not on file documented as of this encounter Visit Diagnoses Not on filedocumented in this encounter Additional Health Concerns Infection Onset Date Last Indicated Resolved Time COVID - 19 09/22/2024 09/22/2024 09/22/2024 4:21 PM PROPERTY DAMAGE CLAIMS ADJUSTOR Assessment Noted Time PHQ-9 Depression Total Score: 0 06/17/20 12:00 PM CDT documented as of this encounter Care Teams Historical Site Guide Relationship Specialty Start Date End Date Jamil Garcia MD #[address] [address] PCP - General Family Medicine 06/26/21 12/17/24 Gina Cutler DPM #[address] [address] Consulting Physician Podiatry 07/07/22 Lamont Freeman MD [address]2 [place] [address] Consulting Physician Gastroenterology 09/17/22 Shari Arias LSW [place] Soaker Meat Director Cardiovascular 11/15/23 4 documented as of this encounter
--- OUTSIDE RECORDS SUMMARY | 2025-03-30 23:57 | XMS_ITS | Encounter Summary ---
Author Organization [facility] Address [address] [facility] [place] [address] Phone Care Team Providers Care Clinical Appeals Reviewer Name Role Phone Jamil Garcia MD Primary Care Provider [phone] Gina Cutler DPM Unavailable Lamont Freeman MD Unavailable [phone] Shari Arias DRAWING MACHINE OPERATOR Unavailable Unavailab le Reason for Visit * Reason Comments Medication Refill Encounter Details Date Type Department Care Team (Late st Contact Info) Description 02/09/2023 Refill [facility] Family Medicine [facility] [address]2 [place] [phone] Jamil Garcia MD #[address] [address] Medication Refill Social History Tobacco Use Types [...] encounter Miscellaneous Notes * Telephone Encounter - Coleen Patel RN - 02/09/2023 2:35 PM CDT PDMP 12/29/22 30 day supply Medication failed the protocol, provider to review and approve the medication order if appropriate. Requested Prescriptions Pending Prescriptions Disp Refills cyclobenzaprine (FLEXERIL) 10 MG Tablet [Pharmacy Med Name: Cyclobenzaprine HCl 10 MG Oral Tablet] 90 Tablet 0 Sig: Take 1 tablet by mouth three times daily as needed for muscle spasm Not Delegated - Muscle Relaxants Protocol Failed - 02/09/2023 10:00 AM Failed - This refill cannot be [...] - 19 09/22/2024 09/22/2024 09/22/2024 4:21 PM GEAR TOOTH GRINDING MACHINE OPERATOR Assessment Noted Time PHQ-9 Depression Total Score: 7 10/20/19 1:00 PM GEAR TOOTH GRINDING MACHINE OPERATOR documented as of this encounter Care Teams Clinical Appeals Reviewer Relationship Specialty Start Date End Date Jamil Garcia MD #[address] [address] PCP - General Family Medicine 06/26/21 12/17/24 Gina Cutler DPM #[address] [address] Consulting Physician Podiatry 07/07/22 Lamont Freeman MD [address] [place] [address] Consulting Physician Gastroenterology 09/17/22 Shari Arias LSW [place] Operations Research Analyst Director Of Surgery 11/15/23 4 documented as of this encounter
--- OUTSIDE RECORDS SUMMARY | 2025-03-30 23:57 | XMS_ITS | Encounter Summary ---
Author Organization [facility] Address [address] [facility] [place] [address] Phone Care Team Providers Care Top Stop Attacher Name Role Phone Jamil Garcia MD Primary Care Provider Gina Cutler DPM Unavailable Lamont Freeman MD Unavailable [phone] Shari Arias SUPERINTENDENT CONTAINER TERMINAL Unavailable Unavailab le Reason for Visit * Reason Comments Medication Refill Encounter Details Date Type Department Care Team (Late st Contact Info) Description 03/12/2023 Refill [facility] [address]2 [place] [phone] Jamil Garcia MD #[address] [address] Medication Refill Social History Tobacco Use Types [...] encounter Miscellaneous Notes * Telephone Encounter - Harika Rueda RN - 03/14/2023 10:21 AM CDT Medication failed the protocol, provider to review and approve the medication order if appropriate. Requested Prescriptions Pending Prescriptions Disp Refills cyclobenzaprine (FLEXERIL) 10 MG Tablet [Pharmacy Med Name: Cyclobenzaprine HCl 10 MG Oral Tablet] 90 Tablet 0 Sig: Take 1 tablet by mouth three times daily as needed for muscle spasm Not Delegated - Muscle Relaxants Protocol Failed - 03/12/2023 5:24 PM Failed - This refill cannot be delegated Passed - Visit with relevant provider in past 12 months or upcoming 90 days Recent Visits Date Type Provider Dept 10/20/22 Office Visit Jamil Garcia MD [facility] 06/17/22 Office Visit Jamil Garcia MD [facility] [place] Showing recent visits within past 365 days and meeting all other requirements Future Appointments Date Type Provider Dept 03/23/23 Appointment Iman Collado RN CARDIOVASCULAR ICU, OBGYN NURSE [facility] Showing future appointments within next 90 days and meeting all other requirements documented in this encounter Plan of Treatment Not on file documented as of this encounter Visit Diagnoses Not on filedocumented in this encounter Additional Health Concerns Infection Onset Date Last Indicated Resolved Time COVID - 19 09/22/2024 09/22/2024 09/22/2024 4:21 PM BAND STRAIGHTENER Assessment Noted Time PHQ-9 Depression Total Score: 7 10/20/19 1:00 PM BAND STRAIGHTENER documented as of this encounter Care Teams Top Stop Attacher Relationship Specialty Start Date End Date Jamil Garcia MD [address] [address] PCP - General Family Medicine 06/26/21 12/17/24 Gina Cutler DPM #[address] [address] Consulting Physician Podiatry 07/07/22 Lamont Fereman MD #2 [place] [address] Consulting Physician Gastroenterology 09/17/22 Shari Arias LSW [place] Boiler Tenders Supervisor Electronic Console Display Operator 11/15/23 4 documented as of this encounter
--- OUTSIDE RECORDS SUMMARY | 2025-03-30 23:57 | XMS_ITS | Patient Health Record ---
Author Organization [email or web address] Address [address] [place], [place] [address] Care Team Providers Care Molecular Physicist Name Role Phone Christiano Gallo MD Primary Care Provider Dalton Puente MD, Jeison Unavailable [phone] Allergies Allergen (clinical drug ingredient) Drug/Non Drug Allergy documented on EMR Reaction Allergy Type Onset Date Status None or not verifiab le (as is Current Medications) (uncoded) Unknown Allergy Active Reason For Referral No Information Social History Tobacco Use: Social History Observation Description Date Details (start date - stop date) Current Smoker NA - NA Tobacco use: Question Answer Notes : current smoker Are you interested in quitting? Ready to quit How many cigarettes a day do you smoke? 21-30 How often do you smoke cigarettes? every day How soon after you wake up do you smoke your fir st cigarette? within 5 min Plan Of Treatment No Information Insurance Providers Payer Name Payer Address Payer Phone Subscriber Number Group Number Insured Name Patient Relationship to Insured Coverage Start Date Coverage End Date [place] [employer] [address] [place] [address] [phone] [id number] Jackson Forbes Self - patient is the insured Medical (General) History Medical History History ICD Code See scanned documentation Surgical History Surgery Date(Month/Year) Flexor tendon repair Hernia repair L4-L5 laminectomy 2009 Prostate surgery
[2025-03-31] VITALS (8 sets, daily range): BP systolic 106–129; BP diastolic 63–91; PULSE 80; RESP 21; O2SAT 95–100
--- NOTE | 2025-03-31 00:52 | ED.FALL ---
HPI - Fall General Chief Complaint: Fall Stated Complaint: fall- R arm, back pain Time Seen by Provider: 03/30/25 22:38 History of Present Illness HPI Narrative: 65-year-old male presenting to the emergency department after mechanical fall. Patient states that he was trying to sit into his bed and miscalculated falling downward and striking the back of his right lower lumbar region against the backboard. He fell onto his right arm. No head trauma or loss of consciousness. No pain control medications prior to arrival. He is at [facility] for alcohol abuse but otherwise denies any major health issues. Endorses some pain especially in his right-sided low back where he struck the backboard but no headache, vision changes, chest pain, shortness a breath, abdominal pain. Ambulatory with a steady gait. Not in any acute distress. Related Data Allergies Allergy/AdvReac Type Severity Reaction Status Date / Time No Known Allergies Allergy Verified 03/30/25 21:35 Review of Systems Review of Systems: As reviewed above in HPI Exam Narrative: GENERAL: [Well-appearing, well-nourished, and in no acute distress.] HEAD: [Normocephalic, atraumatic.] EYES: [PERRLA and EOMI.] ENT: Nares clear, no rhinorrhea or epistaxis. Mucous membranes moist. NECK: Supple. CHEST: [Clear to auscultation. No respiratory distress.] HEART: [Regular rate and rhythm]. No murmur heard. [Normal peripheral pulses.] ABDOMEN: [Soft, nondistended], [nontender], [No rigidity or guarding] EXTREMITIES: Pain reproducible palpation of the right-sided thoracolumbar region without any overlying skin changes or midline back pain. No step-offs deformities. Ambulatory with a steady gait. Tenderness along the right-sided elbow without any step-offs deformities or swelling. Full range of motion of the elbow and right upper extremity. No skin breakdown. SKIN: Warm, dry, no rash. NEURO: [No focal deficits]. Alert and oriented [x3.] PSYCH: [Normal mood and affect.] Course Vital Signs Vital signs: Vital Signs Temperature 36.6 C 03/30/25 21:48 Pulse Rate 92 03/30/25 21:48 Respiratory Rate 16 03/30/25 21:48 Blood Pressure 148/68 H 03/30/25 21:48 Pulse Oximetry 99 03/30/25 21:48 Oxygen Delivery Room Air 03/30/25 21:48 Temperature 36.6 C 03/30/25 21:48 Pulse Rate 92 03/30/25 21:48 Respiratory Rate 16 03/30/25 21:48 Blood Pressure 148/68 H 03/30/25 21:48 Pulse Oximetry 99 03/30/25 21:48 Oxygen Delivery Room Air 03/30/25 21:48 MDM - Fall MDM Narrative Medical decision making narrative: 65-year-old male presenting to the emergency department after mechanical fall. Patient states that he was trying to sit into his bed and miscalculated falling downward and striking the back of his right lower lumbar region against the backboard. He fell onto his right arm. No head trauma or loss of consciousness. No pain control medications prior to arrival. [facility] is [facility] for [facility] but otherwise denies any major health issues. Endorses some pain especially in his right-sided low back where he struck the backboard but no headache, vision changes, chest pain, shortness a breath, abdominal pain. Ambulatory with a steady gait. Not in any acute distress. Pain reproducible palpation of the right-sided thoracolumbar region without any overlying skin changes or midline back pain. No step-offs deformities. Ambulatory with a steady gait. Tenderness along the right-sided elbow without any step-offs deformities or swelling. Full range of motion of the elbow and right upper extremity. No skin breakdown. X-rays of the lumbar and thoracic region were obtained as well as right elbow x-ray. Patient was given Toradol, Tylenol lidocaine patch and Robaxin. X-rays were negative for any acute osseous abnormality or acute fracture. Patient is safe for discharge back to his rehab facility at this time will be sent home with Tylenol and ibuprofen as well as lidocaine patches. Medical Records Attestation: I reviewed the patient's medical records. Imaging Data Attestation: I personally reviewed and interpreted this imaging study as follows: My impression: Impressions Elbow X-Ray 03/30/25 23:36 IMPRESSION: No acute fracture or dislocation, as detailed above Lumbar Spine X-Ray 03/30/25 23:37 IMPRESSION: Degenerative disease, without acute fracture identified. Thoracic Spine X-Ray 03/30/25 23:40 IMPRESSION: Diffuse bony demineralization with findings suggesting osteoporosis versus sickle cell disease. Discharge Plan Discharge Clinical Impression: Thoracolumbar back pain, Elbow pain Patient Disposition: Home Condition: Stable Instructions: Antibiotic Form Additional Instructions: X-ray showed no acute injuries or fractures. We will send you home with some pain medication. Follow-up with regular doctor as needed and return with any emergent concerns. Patient Language: Jamaican Prescriptions: New acetaminophen [Tylenol Extra Strength] 500 mg tablet 1,000 mg PO TID PRN (Reason: pain) Qty: 30 0RF ibuprofen 600 mg tablet 600 mg PO TID PRN (Reason: pain) Qty: 20 0RF Follow-up/Referrals: UNKNOWN,DOCTOR [Primary Care Provider] - Time of Disposition: 01:03
[2025-03-31] MEDS: KETOROLAC 10 MG TABLET PO (01:05)
[2025-03-31] MEDS: LIDOCAINE 5% PATCH 1 PATCH TRANSDERM (01:05)
[2025-03-31] MEDS: ACETAMINOPHEN 500 MG TABLET 1000 MG PO (01:05)
--- NOTE | 2025-03-31 02:56 | PC.NURSE ---
RN spoke with Johnnie ahn about transfer back to facility. Facility members stated they will call back when they can arrange a ride back.
== END 2025-03-31 03:41 | disposition home or self-care (01) ==
PROVIDERS: Emergency Provider Student in an Organized Health Care Education/Training Program
DX: M25.521 Pain in right elbow (principal); M54.6 Pain in thoracic spine; M54.50 Low back pain, unspecified; W06.XXXA Fall from bed, initial encounter
CPT/HCPCS: 72072; 72100; 73080; 99284; A9270

== ENCOUNTER 2025-04-02 04:43 | Emergency (ER) | payer MEDICARE, MEDICAID, SELFPAY ==
--- NOTE | ~2025-04-02 | CT_ITS ---
EXAMINATION: CT thoracic lumbar wo con DATE: 04/02/2025 05:12 INDICATION: Status post fall. Back pain. TECHNIQUE: Computed tomography (CT) of the thoracic and lumbar spine was performed without intravenou s contrast. The dose-length product was 393.78 mGy-cm. COMPARISON: None FINDINGS: Thoracic spine: No acute fracture or subluxation. Normal thoracic kyphosis. There is levoscoliosis. H eart size normal. There is chronic granulomatous disease of the lungs. There is emphysema. Dependent atelectasis. Lumbar spine: There is grade 1 degenerative spondylolisthesis at L4-5 secondary to facet hypertrophy. There is mild-moderate multilevel facet hypertrophy and L2-3 through L5-S1. There is mild dextrocurv ature of the thoracic spine. There is a subtle lytic lesion of the right ilium. No acute fracture or traumatic malalignment. IMPRESSION: 1. No acute fracture. 2: Subtle lytic lesion right ilium, nonspecific. Consider myeloma and metastatic disease if there is a clinical history of malignancy. Reviewed, dictated and finalized at location A. IMPRESSION: 1. No acute fracture. 2: Subtle lytic lesion right ilium, nonspecific. Consider myeloma and metastat ic disease if there is a clinical history of malignancy.
[2025-04-02 04:46] VITALS: BP 145/77; PULSE 77; RESP 16; TEMP 36.3; O2SAT 100
--- OUTSIDE RECORDS SUMMARY | 2025-04-02 04:46 | XMS_ITS ---
Author Organization [facility] Address [address] [place] [address] Care Team Providers Care Account Coordinator Name Role Phone Hector Landeros Primary Care Provider [phone] Naresh Ballard Unavailable [phone] REASON FOR VISIT UDS QM orders Encounters Encounter Location Date Provider Diagnosis [facility] [address] [place] [address] 03/28/2025 Naresh Ballard Encounter for screening for [...] Name Order Date Occult Blood, [place], [place] ([id number]) 025 Next Appt Details Provider Name:Kp pedraza, 04/02/2025 09:00:00 AM, [address], [place], [address], Provider Name:Demi duncan, 04/04/2025 11:00:00 AM, [address], [place], [address], Progress Notes * Jackson FORBES SrDOB:1960 (65 yo M)Acc No.[id number]:03/28/2025 UNLOCKED PROGRESS NOTE Patient: Jackson FLOWERS Sr :1960 A ge:65 Y S ex:Male Address:[address] [place] [address], [address] Subjective: * Chief Complaints: * U DS QM orders * Medical History: * Surgical History: * Hospitalization/Major Diagno stic Procedure: * Medications: Objective: * Vitals: * Physical Examination: Assessment: * Assessment: 1. E ncounter for screening for malignant neoplasm of colon - Z12.11 Plan: * Treatment: * Procedure Codes: * * Date:
--- OUTSIDE RECORDS SUMMARY | 2025-04-02 04:46 | XMS_ITS | Encounter Summary ---
Author Organization [facility] Address [address] [facility] [place] [address] Phone Care Team Providers Care Client Manager Large Law Name Role Phone Jamil Garcia MD Primary Care Provider [phone] Gina Cutler DPM Unavailable Lamont Freeman MD Unavailable [phone] Shari Arias TOOL MAINTENANCE TECHNICIAN Unavailable Unavailab le Reason for Visit * Reason Comments Medication Refill Encounter Details Date Type Department Care Team (Late st Contact Info) Description 11/21/2022 Refill [facility] #[address] [place] [phone] Jamil Garcia MD [address] [address] Medication Refill Social History Tobacco Use Types [...] Coronavirus/COVID-19? No / Unsure 10/23/2022 1:43 PM BATTER SCALER documented as of this encounter Miscellaneous Notes [...] Dept 10/20/22 Office Visit Jamil Garcia MD [facility] 06/17/22 Office Visit Jamil Garcia MD [facility] Showing recent visits within past 365 [...] - 19 09/22/2024 09/22/2024 09/22/2024 4:21 PM BATTER SCALER Assessment Noted Time PHQ-9 Depression Total Score: 7 10/20/19 23 1:00 PM BATTER SCALER documented as of this encounter Care Teams Client Manager Large Law Relationship Specialty Start Date End Date Jamil Garcia MD #[address] [address] PCP - General Family Medicine 06/26/21 12/17/24 Gina Cutler DPM #[address] [address] Consulting Physician Podiatry 07/07/22 Lamont Freeman MD #2 [place] [address] Consulting Physician Gastroenterology 09/17/22 Shari Arias LSW [place] Bag Washer Pole Maker 11/15/23 4 documented as of this encounter
--- OUTSIDE RECORDS SUMMARY | 2025-04-02 04:46 | XMS_ITS | Encounter Summary ---
Author Organization [facility] Address [address] [place] [address] Phone Care Team Providers Care Assistant Store Manager Trainee Name Role Phone Jamil Garcia MD Primary Care Provider Gina Cutler DPM Unavailable [phone] Lamont Freeman MD Unavailable Shari Arias HEADER DOCK Unavailable Unavailab le Reason for Visit * Reason Comments Medication Refill Encounter Details Date Type Department Care Team (Late st Contact Info) Description 03/12/2023 Refill [facility] [address] [place] [phone] Jamil Garcia MD #[address] [address] Medication Refill Social History Tobacco Use Types [...] Lopes 06/17/22 Office Visit Jamil Garcia MD [facility] [place] Showing recent visits within past 365 days and meeting all other requirements Future Appointments Date Type Provider Dept 03/23/23 Appointment Iman Collado INTERNAL CONSULTANT, SATELLITE SPECIALIST [facility] Showing future appointments within next 90 days and meeting all other requirements documented in this encounter Plan of Treatment Not on file documented as of this encounter Visit Diagnoses Not on filedocumented in this encounter Additional Health Concerns Infection Onset Date Last Indicated Resolved Time COVID - 19 09/22/2024 09/22/2024 09/22/2024 4:21 PM PARTNER CCO Assessment Noted Time PHQ-9 Depression Total Score: 7 10/20/19 1:00 PM PARTNER CCO documented as of this encounter Care Teams Assistant Store Manager Trainee Relationship Specialty Start Date End Date Jamil Garcia MD [address] [address] PCP - General Family Medicine 06/26/21 12/17/24 Gina Cutler DPM #[address] [address] Consulting Physician Podiatry 07/07/22 Lamont Freeman MD [address]2 [place] [address] Consulting Physician Gastroenterology 09/17/22 Shari Arias LSW [place] Fruit Harvester Asphalt Plant Worker 11/15/23 4 documented as of this encounter
--- OUTSIDE RECORDS SUMMARY | 2025-04-02 04:46 | XMS_ITS | Encounter Summary ---
Author Organization [facility] Address [address] [place] [place] [address] Phone Care Team Providers Care Clinical Dietician Name Role Phone Jamil Garcia MD Primary Care Provider [phone] Gina Cutler DPM Unavailable [phone] Lamont Freeman MD Unavailable [phone] hSari Arias EQUITY ANALYST Unavailable Unavailab le Reason for Visit * Reason Comments Medication Refill Encounter Details Date Type Department Care Team (Late st Contact Info) Description 02/09/2023 Refill [facility] #2 [place] [phone] Jamil Garcia MD #[address] [address] Medication Refill Social History Tobacco Use Types [...] - 19 09/22/2024 09/22/2024 09/22/2024 4:21 PM SEISMOGRAPH SHOOTER Assessment Noted Time PHQ-9 Depression Total Score: 7 10/20/19 1:00 PM SEISMOGRAPH SHOOTER documented as of this encounter Care Teams Clinical Dietician Relationship Specialty Start Date End Date Jamil Garcia MD #[address] [address] PCP - General Family Medicine 06/26/21 12/17/24 Gina Cutler DPM #[address] [address] Consulting Physician Podiatry 07/07/22 Lamont Freeman MD [address] [place] [address] Consulting Physician Gastroenterology 09/17/22 Shari Arias LSW [place] Agency Service Representative Title I Instructional Assistant 11/15/23 4 documented as of this encounter
--- OUTSIDE RECORDS SUMMARY | 2025-04-02 04:46 | XMS_ITS | Encounter Summary ---
Author Organization [facility] Address [address] [facility] [place] [address] Phone Care Team Providers Care Marina Sales And Service Supervisor Name Role Phone Jamil Garcia MD Primary Care Provider [phone] Gina Cutler DPM Unavailable [phone] Lamont Freeman MD Unavailable [phone] Shari Arias SALES INSPECTOR Unavailable Unavailab le Reason for Visit * Reason Comments Medication Refill Encounter Details Date Type Department Care Team (Late st Contact Info) Description 08/24/2022 Refill [facility] #2 [place] [phone] Jamil Garcia MD #[address] [address] Medication Refill Social History Tobacco Use Types [...] Coronavirus/COVID-19? No / Unsure 07/28/2022 10:41 AM PERCUSSION WELDING MACHINE OPERATOR documented as of this encounter Miscellaneous Notes [...] Dept 06/17/22 Office Visit Jamil Garcia MD [facility] Showing recent visits within past 365 days and meeting all other requirements Future Appointments Date Type Provider Dept 10/20/22 Appointment Jamil Garcia MD [facility] Showing future appointments within next 90 days and meeting all other requirements USSION WELDING MACHINE OPERATOR documented in this encounter Plan of Treatment Not on file documented as of this encounter Visit Diagnoses Not on filedocumented in this encounter Additional Health Concerns Infection Onset Date Last Indicated Resolved Time COVID - 19 09/22/2024 09/22/2024 09/22/2024 4:21 PM PERCUSSION WELDING MACHINE OPERATOR Assessment Noted Time PHQ-9 Depression Total Score: 0 06/17/20 12:00 PM CDT documented as of this encounter Care Teams Marina Sales And Service Supervisor Relationship Specialty Start Date End Date Jamil Garcia MD #[address] [address] PCP - General Family Medicine 06/26/21 12/17/24 Gina Cutler DPM #[address] [address] Consulting Physician Podiatry 07/07/22 Lamont Freeman MD [address]2 [place] [address] Consulting Physician Gastroenterology 09/17/22 Shari Arias LSW [place] Tents Assembler Java Lead Architect 11/15/23 4 documented as of this encounter
--- OUTSIDE RECORDS SUMMARY | 2025-04-02 04:46 | XMS_ITS | Clinical Summary ---
Author Organization [facility] Address [address], [facility] [address] [place] [address] Phone Care Team Providers Care Landscape Engineer Name Role Phone Gina Cutler DPM Unavailable [phone] Lamont Freeman MD Unavailable [phone] Allergies No known active allergies Medications * [...] Covid-19 Vaccine, Vector-nr, Rs-ad26, Pf, 0.5 Ml (apomio/TripsByTips&TripsByTips) 12/17/2020 Influenza Vaccine, Quadrivalent, PF 10/20/2022,1 08/26/2020 [...] Comments Blood Pressure 114/72 09/22/2024 7:00 PM FIELD ADJUSTER Pulse 85 09/22/2024 7:00 PM FIELD ADJUSTER Temperature 36.4 C (97.6 F) 09/22/2024 2:31 PM FIELD ADJUSTER Respiratory Rate 15 09/22/2024 5:45 PM FIELD ADJUSTER Oxygen Saturation 97% 09/22/2024 7:00 PM FIELD ADJUSTER Inhaled Oxygen Concentration - - Weight 54.6 kg (120 lb 5.9 oz) 09/22/2024 2:31 P M FIELD ADJUSTER Height 160 cm (5' 3) 09/22/2024 2:31 PM FIELD ADJUSTER Body Mass Index 21.32 09/22/2024 2:31 PM FIELD ADJUSTER Plan of Treatment Health Maintenance Due Date [...] DIAGNOSTIC, VIA GUAIAC STAT 09/22/2024 6:13 PM FIELD ADJUSTER PSA SCREEN Today 06/26/2021 10:43 AM CDT Screening for prostate cancer from Last 3 Months or Most Recently Relevant to Health Maintenance Results * Stool, Occult Blood, Diagnostic (09/22/2024 6:13 PM FIELD ADJUSTER) OCCULT BLOOD DIAG Negative Negative 09/22/2024 6:43 PM FIELD ADJUSTER [facility] Stool STOOL SPECIMEN / Unknown Non-Phlebotomy Collection / Unknown 09/22/2024 6:13 PM FIELD ADJUSTER 09/22/2024 6:39 PM FIELD ADJUSTER Narrative [facility] - 09/22/2024 6:43 PM FIELD ADJUSTER Carlo Rosen DO BODY FLUIDS & STOOLS OR DERABLES Final Result Performing Organization Address City/[facility]/ZIP Co de Phone Number [facility] [address] [place] [address] * PSA SCREEN (06/26/2021 10:43 AM CDT) Pathologist [facility] PSA SCREEN, TOTAL 3.33 <=4.00 ng/mL 06/26/2021 [...] Garcia MD CHEMISTRY ORDERABLES Final Re sult [facility] [address] [place] [address] from Last 3 Months or Most Recently Relevant to Health Maintenance Insurance MEDICAID [place] MED[employer] C [employer] Care Teams Landscape Engineer Relationship Specialty Start Date End Date Gina Cutler DPM Consulting Physician Podiatry 07/07/22 Lamont Freeman MD [address] [place] [address] Consulting Physician Gastroenterology 09/17/22
--- OUTSIDE RECORDS SUMMARY | 2025-04-02 04:46 | XMS_ITS | Patient Health Record ---
Author Organization [facility] Address [address] [place] [address] Care Team Providers Care Filter Worker Name Role Phone Hector Landeros Primary Care Provider [phone] Naresh Ballard Unavailable [phone] Kirsty Cross Unavailable [phone] Kp Goldberg Unavailable [phone] Results Component Value Reference Range Notes Breathalyzer Reviewed date:03/27/2025 02:45:53 PM Interpretation: Performing Lab: Notes/Report: ALEXANDRU 0.000 QuantiFERON-TB Gold Plus ([id number]) Reviewed date:03/30/2025 08:44:43 AM Interpretation: Performing [facility] [address] [facility], Phone - [phone], [facility] Notes/Report: QuantiFERON Incubation Incubation performed. QuantiFERON-TB Gold [...] Nil Value 0.02 QuantiFERON Mitogen Value >10.00 HIV Screen *HIV 1, 2 Ab, p24 Ag ([id number]) Reviewed date:03/30/2025 08:44:43 AM Interpretation: Performing Lab:[address], Phone - [phone], Director - [facility] Notes/Report: HIV Ab/p24 Ag Screen Non Reactive Non Reactive HIV-1/HIV-2 antibodies and HIV-1 p24 antigen were NOT detected. There is no laboratory evidence of HIV infection. HIV Negative CMP 14 Comprehensive Metabol ic Panel* Reviewed date:03/30/2025 08:44:44 AM Interpretation: Performing Lab:[address], Phone - [phone], Director - [facility] Notes/Report: Glucose 123 70-99 mg/dL BUN 16 [...] 0-40 IU/L ALT (SGPT) 18 0-44 IU/L CBC With Differential/Platel et* Reviewed date:03/30/2025 08:44:44 AM Interpretation: Performing Lab:[address], Phone - [phone], Director - [facility] Notes/Report: WBC 6.7 3.4-10.8 x10E3/uL RBC 4.36 [...] Comments: Note: Verifie d by microscopic examination. 14 Panel Urine Drug Screen Reviewed date:03/27/2025 02:48:08 PM Interpretation: Performing Lab: Notes/Report: THC neg NICHELLE neg MOP (OPI) neg AMP POS MET POS BAR neg BZO neg MDMA neg MTD neg OXY neg PCP neg BUP neg TCA neg FTY neg Reason For Referral No Information Medications Medication [...] with others, in a hotel, in a alf, living outside on the street, on a beach, or in a park) Are you worried about losing your housing? Yes What is the highest level of school that you have finished? High school diploma or GED What is your current work situation? Oth erwise unemployed but not seeking work (ex. student, retired, disabled, unpaid primary disabilities caregiver) In the past year, have you o [...] phone, visiting friends or family, going to mormon or club meetings) More than 5 times a week How stressed are you? Stress is when someone feels tense, nervous, anxious, or can\t sleep at night because their mind is troubled Very much In the past year have you sp ent more than 2 nights in a row in a shelter, chcf, group home center, or juvenile correctional facility? No Are [...] Status Risk Notes Problem Shortness of breath (902446342) Shortness of breath (R06.02) Active confirmed Problem Substance abuse (1286921471) Substance abuse (F19.10) Active confirmed Problem Right shoulder pain (6453234205) Right shoulder pain (M25.511) Active confirmed Problem Overweight (470453046) Over weight (E66.3) Active confirmed Problem Adult health examination (984298198) Adult general medical exam (Z00.00) Active confirmed Problem Depressed mood (382583565) Depressed mood (F32.9) Active confirmed Problem Patient underweight (473650469) Patient underweight (R63.6) Active confirmed Problem Tobacco user (850252374) Smokes with greater than 40 pack year [...] SOB Encounters Encounter Location Date Provider Diagnosis Formerly [facility] [address] [place] [address] 03/27/2025 Kp Goldberg Adult general medical exam Z00.00 ; Right shoulder pain M25.511 and Patient underweight R63.6 [facility]ly [facility] [address] [address] 03/27/2025 Kirsty Cross Substance abuse F19.10 and Depressed mood F32.9 [place] [address] [place] [address] 03/28/2025 Kp Goldberg Shortness of breath R06.02 and Smokes with greater than 40 pack year history F17.210 [address] [place] [address] 03/28/2025 Naresh Elio Encounter for screening for malignant neoplasm of colon Z12.11 Assessments Encounter Date Diagnosis (ICD Code) Assessment Notes Treatment Notes Treatment Clinical Notes Section Notes 03/27/2025 Substance abuse (ICD-10 - F19.10) 03/27/2025 Depressed mood (ICD-10 - F32.9) 03/28/2025 Shortness of breath (ICD-10 - R06.02) [...] and educated him on proper inhaler technique. 03/27/2025 Right shoulder pain (ICD-10 - M25.511) 03/27/2025 Adult general medical exam (ICD-10 - Z00.00) SUPR Programs: Based on an evaluation of [facility] Patient Placement Criteria, a recommendation for [...] Occult Blood Test.pdf (Fecal Occult Blood Test.pdf) 03/27/2025 Patient underweight (ICD-10 - R63.6) 03/28/2025 Smokes with greater than 40 pack year history (ICD-10 - F17.210) 03/27/2025 Other Continue treatment as recommended by [facility] staff. Encouraged patient to obtain routine medical care with patient's own primary care provider or establish as a patient at [facility] if no current primary care provider. 03/27/2025 [...] pedraza, 04/02/2025 09:00:00 AM, [address] [place], [address], Provider Name:Demi duncan, 04/04/2025 11:00:00 AM, [address], [place], [address], Insurance Providers Payer Name Payer Address Payer Phone Subscriber Number Group Number Insured Name Patient Relationship to Insured Coverage Start Date Coverage End Date [facility] [address] [address] [place] [address] [id number] Jackson Forbes Self - patient is the insured 5 Medical (General) History Medical History History ICD Code barrettes disease schizophrenia
--- OUTSIDE RECORDS SUMMARY | 2025-04-02 04:46 | XMS_ITS | Patient Health Record ---
Author Organization [facility] Address [address] [place], [place] [address] Care Team Providers Care Dredge Mechanic Name Role Phone Christiano Gallo MD Primary Care Provider Dalton Puente MD, Jeison Unavailable [phone] Allergies Allergen (clinical drug ingredient) Drug/Non Drug [...] End Date [place] [address] [place] [id number] Jackson Forbes Self - patient is the insured Medical (General) History Medical History History ICD Code See scanned documentation Surgical History Surgery Date(Month/Year) Flexor tendon repair Hernia repair L4-L5 laminectomy 2009 Prostate surgery
--- OUTSIDE RECORDS SUMMARY | 2025-04-02 04:46 | XMS_ITS | Encounter Summary ---
Author Organization [facility] Address [address] [facility] [place] [address] Phone Care Team Providers Care Field Servicer Name Role Phone Jamil Garcia MD Primary Care Provider Gina Cutler DPM Unavailable Lamont Freeman MD Unavailable [phone] Shari Arias PEDIATRIC SURGEON Unavailable Unavailab le Reason for Visit * Reason Comments Medication Refill Encounter Details Date Type Department Care Team (Late st Contact Info) Description 10/03/2022 Refill [facility] Family Medicine [facility] [address]2 [place] [phone] Jamil Garcia MD #[address] [address] Medication Refill Social History Tobacco Use Types [...] Coronavirus/COVID-19? No / Unsure 09/17/2022 1:39 PM CERTIFIED EXECUTIVE CHEF documented as of this encounter Miscellaneous Notes [...] 90 days and meeting all other requirements IFIED EXECUTIVE CHEF documented in this encounter Plan of Treatment Not on file documented as of this encounter Visit Diagnoses Not on filedocumented in this encounter Additional Health Concerns Infection Onset Date Last Indicated Resolved Time COVID - 19 09/22/2024 09/22/2024 09/22/2024 4:21 PM CERTIFIED EXECUTIVE CHEF Assessment Noted Time PHQ-9 Depression Total Score: 0 06/17/20 12:00 PM CDT documented as of this encounter Care Teams Field Servicer Relationship Specialty Start Date End Date Jamil Garcia MD #[address] [address] PCP - General Family Medicine 06/26/21 12/17/24 Gina Cutler DPM #[address] [address] Consulting Physician Podiatry 07/07/22 Lamont Freeman MD #2 [place] [address] Consulting Physician Gastroenterology 09/17/22 Shari Arias LSW [place] Office Auditor Geographic Information Scientist 11/15/23 4 documented as of this encounter
--- OUTSIDE RECORDS SUMMARY | 2025-04-02 04:46 | XMS_ITS | Encounter Summary ---
Author Organization [facility] Address [address] [place] [address] Phone Care Team Providers Care Sales Account Executive Name Role Phone Jamil Garcia MD Primary Care Provider [phone] Gina Cutler DPM Unavailable Lamont Freeman MD Unavailable [phone] Shari Arias TALENT DEVELOPMENT MANAGER Unavailable Unavailab le Reason for Visit * Reason Comments Medication Refill Encounter Details Date Type Department Care Team (Late st Contact Info) Description 12/28/2022 Refill [facility] Family [facility] #2 [place] [address] Jamil Garcia MD #[address] [address] Medication Refill Social History Tobacco Use Types [...] - 19 09/22/2024 09/22/2024 09/22/2024 4:21 PM HEALTHCARE NETWORK CONSULTANT Assessment Noted Time PHQ-9 Depression Total Score: 7 10/20/19 23 1:00 PM HEALTHCARE NETWORK CONSULTANT documented as of this encounter Care Teams Sales Account Executive Relationship Specialty Start Date End Date Jamil Garcia MD [address] [address] PCP - General Family Medicine 06/26/21 12/17/24 Gina Cutler DPM #[address] [address] Consulting Physician Podiatry 07/07/22 Lamont Freeman MD #[address] [place] [address] Consulting Physician Gastroenterology 09/17/22 Shari Arias LSW [place] Tile Fitter Wheelabrator Operator 11/15/23 4 documented as of this encounter
--- NOTE | 2025-04-02 04:50 | ED_ITS ---
HPI - Back Pain/Injury General Chief Complaint: Back Pain/Injury Stated Complaint: previous fall with back pain Time Seen by Provider: 04/02/25 04:46 History of Present Illness HPI Narrative: 65-year-old male presenting for repeat evaluation of back pain. Patient was seen here by myself several nights ago for mechanical fall with no apparent injuries to his back. He states he did not get any of his medications filled at his rehab [facility] he is having some pain does not responding Tylenol and ibuprofen. Denies any new injuries or falls. No other symptomatology. Pain is localized to the right paraspinal low thoracolumbar region. No other symptoms. Related Data Allergies Allergy/AdvReac Type Severity Reaction Status Date / Time No Known Allergies Allergy Verified 03/30/25 21:35 Review of Systems Review of Systems: As reviewed above in HPI Exam Narrative: GENERAL: [Well-appearing, well-nourished, and in no acute distress.] HEAD: [Normocephalic, atraumatic.] EYES: [PERRLA and EOMI.] ENT: Nares clear, no rhinorrhea or epistaxis. Mucous membranes moist. NECK: Supple. CHEST: [Clear to auscultation. No respiratory distress.] HEART: [Regular rate and rhythm]. No murmur heard. [Normal peripheral pulses.] ABDOMEN: [Soft, nondistended], [nontender], [No rigidity or guarding] EXTREMITIES: Reproducible pain with palpation the right-sided thoracolumbar region without any overlying skin changes, step-offs deformities. No midline back pain or step-offs. Ambulates without difficulty. No skin breakdown or obvious bruising. SKIN: Warm, dry, no rash. NEURO: [No focal deficits]. Alert and oriented [x3.] PSYCH: [Normal mood and affect.] Course Vital Signs Vital signs: Vital Signs Temperature 36.3 C L 04/02/25 04:46 Pulse Rate 77 04/02/25 04:46 Respiratory Rate 16 04/02/25 04:46 Blood Pressure 145/77 H 04/02/25 04:46 Pulse Oximetry 100 04/02/25 04:46 Oxygen Delivery Room Air 04/02/25 04:46 Temperature 36.3 C L 04/02/25 04:46 Pulse Rate 79 04/02/25 06:56 Respiratory Rate 17 04/02/25 06:56 Blood Pressure 139/81 04/02/25 06:56 Pulse Oximetry 100 04/02/25 06:56 Oxygen Delivery Room Air 04/02/25 04:46 MDM - Back Pain/Injury MDM Narrative Medical decision making narrative: 65-year-old male presenting for repeat evaluation of back pain. Patient was seen here by myself several nights ago for mechanical fall with no apparent injuries to his back. He states he did not get any of his medications filled at his rehab [facility] he is having some pain does not responding Tylenol and ibuprofen. Denies any new injuries or falls. No other symptomatology. Pain is localized to the right paraspinal low thoracolumbar region. No other symptoms. Patient is neurologically intact and hemodynamically stable. He has reproducible musculoskeletal pain on palpation of his right lower thoracolumbar region. Most likely differential includes muscle spasm, occult fracture, thoracolumbar strain. CTs were obtained given the unremarkable plain films from several nights ago. He was given Toradol Robaxin and lidocaine and re- evaluated. Patient CT scan shows no acute findings in the T or L-spine. No traumatic abnormalities or injuries. Patient felt improved after pain meds. Safe for discharge back to his rehab facility. Medical Records Attestation: I reviewed the patient's medical records. Imaging Data Attestation: I personally reviewed and interpreted this imaging study as follows: My impression: No acute findings and a T or L-spine Discharge Plan Discharge Clinical Impression: Thoracolumbar back pain Patient Disposition: Home Condition: Stable Instructions: Antibiotic Form Additional Instructions: No acute findings in your scans. Tylenol ibuprofen, Robaxin lidocaine patch for pain control. Please fill the provided prescription. Patient Language: Occitan Prescriptions: New methocarbamol 750 mg tablet 750 mg PO TID PRN (Reason: pain) Qty: 20 0RF lidocaine 5 % adhesive patch,medicated 1 patch topical DAILY Qty: 15 0RF Rx Instructions: leave on most painful area for up to 12 hrs No Action acetaminophen [Tylenol Extra Strength] 500 mg tablet 1,000 mg PO TID PRN (Reason: pain) Qty: 30 0RF ibuprofen 600 mg tablet 600 mg PO TID PRN (Reason: pain) Qty: 20 0RF Follow-up/Referrals: UNKNOWN,DOCTOR [Primary Care Provider] - Time of Disposition: 05:50
[2025-04-02] MEDS: LIDOCAINE 5% PATCH 1 PATCH TRANSDERM (05:10)
[2025-04-02] MEDS: KETOROLAC 30 MG/ML VIAL (*BKC) IM (05:10)
[2025-04-02 05:23] VITALS: PULSE 79; RESP 16; O2SAT 100
--- OUTSIDE RECORDS SUMMARY | 2025-04-02 05:27 | XMS_ITS | Encounter Summary ---
Author Organization [facility] Address [address] [facility] [place] [address] Phone Care Team Providers Care Fitter Type Bar And Segment Name Role Phone Jamil Garcia MD Primary Care Provider [phone] Gina Cutler DPM Unavailable Lamont Freeman MD Unavailable [phone] Shari Arias CREPE MAKER Unavailable Unavailab le Reason for Visit * Reason Comments Medication Refill Encounter Details Date Type Department Care Team (Late st Contact Info) Description 10/03/2022 Refill [facility] [address] [place] [phone] Jamil Garcia MD [address] [address] Medication Refill Social History Tobacco Use Types [...] Coronavirus/COVID-19? No / Unsure 09/17/2022 1:39 PM PLASTER PATTERNMAKER documented as of this encounter Miscellaneous Notes [...] 90 days and meeting all other requirements TER PATTERNMAKER documented in this encounter Plan of Treatment Not on file documented as of this encounter Visit Diagnoses Not on filedocumented in this encounter Additional Health Concerns Infection Onset Date Last Indicated Resolved Time COVID - 19 09/22/2024 09/22/2024 09/22/2024 4:21 PM PLASTER PATTERNMAKER Assessment Noted Time PHQ-9 Depression Total Score: 0 06/17/20 12:00 PM CDT documented as of this encounter Care Teams Fitter Type Bar And Segment Relationship Specialty Start Date End Date Jamil Garcia MD [address] [address] PCP - General Family Medicine 06/26/21 12/17/24 Gina Cutler DPM #[address] [address] Consulting Physician Podiatry 07/07/22 Lamont Freeman MD [address]2 [place] [address] Consulting Physician Gastroenterology 09/17/22 Shari Arias LSW [place] [employer] Consultant Label Remover 11/15/23 4 documented as of this encounter
--- OUTSIDE RECORDS SUMMARY | 2025-04-02 05:27 | XMS_ITS | Encounter Summary ---
Author Organization [facility] Address [address] [facility] [place] [address] Phone Care Team Providers Care Tire Beader Maker Name Role Phone Jamil Garcia MD Primary Care Provider [phone] Gina Cutler DPM Unavailable Lamont Freeman MD Unavailable [phone] Shari Arias STRAP SETTER Unavailable Unavailab le Reason for Visit * Reason Comments Medication Refill Encounter Details Date Type Department Care Team (Late st Contact Info) Description 08/24/2022 Refill [facility] [address]2 [place] [phone] Jamil Garcia MD [address] [address] Medication Refill Social History Tobacco Use Types [...] Coronavirus/COVID-19? No / Unsure 07/28/2022 10:41 AM ENROLLMENT NURSE documented as of this encounter Miscellaneous Notes [...] Dept 06/17/22 Office Visit Jamil Garcia MD [facility] [place] Showing recent visits within past 365 days and meeting all other requirements Future Appointments Date Type Provider Dept 10/20/22 Appointment Jamil Garcia MD [facility] Showing future appointments within next 90 days and meeting all other requirements LLMENT NURSE documented in this encounter Plan of Treatment Not on file documented as of this encounter Visit Diagnoses Not on filedocumented in this encounter Additional Health Concerns Infection Onset Date Last Indicated Resolved Time COVID - 19 09/22/2024 09/22/2024 09/22/2024 4:21 PM ENROLLMENT NURSE Assessment Noted Time PHQ-9 Depression Total Score: 0 06/17/20 12:00 PM CDT documented as of this encounter Care Teams Tire Beader Maker Relationship Specialty Start Date End Date Jamil Garcia MD [address] [address] PCP - General Family Medicine 06/26/21 12/17/24 Gina Cutler DPM #[address] [address] Consulting Physician Podiatry 07/07/22 Lamont Freeman MD [address]2 [place] [address] Consulting Physician Gastroenterology 09/17/22 Shari Arias LSW [place] Customer Success Director Sand Temperer 11/15/23 4 documented as of this encounter
--- OUTSIDE RECORDS SUMMARY | 2025-04-02 05:27 | XMS_ITS | Clinical Summary ---
Author Organization [facility] Address [address] [facility] [address] [place] [address] Phone Care Team Providers Care Gas Examiner Name Role Phone Gina Cutler DPM Unavailable [phone] Lamont Freeman MD Unavailable [phone] Allergies No known active allergies Medications * [...] Covid-19 Vaccine, Vector-nr, Rs-ad26, Pf, 0.5 Ml ([employer]) 12/17/2020 Influenza Vaccine, Quadrivalent, PF 10/20/2022,1 08/26/2020 [...] Comments Blood Pressure 114/72 09/22/2024 7:00 PM PAPER COLORER Pulse 85 09/22/2024 7:00 PM PAPER COLORER Temperature 36.4 C (97.6 F) 09/22/2024 2:31 PM PAPER COLORER Respiratory Rate 15 09/22/2024 5:45 PM PAPER COLORER Oxygen Saturation 97% 09/22/2024 7:00 PM PAPER COLORER Inhaled Oxygen Concentration - - Weight 54.6 kg (120 lb 5.9 oz) 09/22/2024 2:31 P M PAPER COLORER Height 160 cm (5' 3) 09/22/2024 2:31 PM PAPER COLORER Body Mass Index 21.32 09/22/2024 2:31 PM PAPER COLORER Plan of Treatment Health Maintenance Due Date [...] DIAGNOSTIC, VIA GUAIAC STAT 09/22/2024 6:13 PM PAPER COLORER PSA SCREEN Today 06/26/2021 10:43 AM CDT Screening for prostate cancer from Last 3 Months or Most Recently Relevant to Health Maintenance Results * Stool, Occult Blood, Diagnostic (09/22/2024 6:13 PM PAPER COLORER) OCCULT BLOOD DIAG Negative Negative 09/22/2024 6:43 PM PAPER COLORER [facility] Stool STOOL SPECIMEN / Unknown Non-Phlebotomy Collection / Unknown 09/22/2024 6:13 PM PAPER COLORER 09/22/2024 6:39 PM PAPER COLORER Narrative [facility] - 09/22/2024 6:43 PM PAPER COLORER Carlo Rosen DO BODY FLUIDS & STOOLS OR DERABLES Final Result Performing Organization Address City/[facility]/ZIP Co de Phone Number [facility] [address] [place] [address] * PSA SCREEN (06/26/2021 10:43 AM CDT) Pathologist [facility] PSA SCREEN, TOTAL 3.33 <=4.00 ng/mL 06/26/2021 12:58 PM CDT [facility] Blood Venipuncture / Unknown 06/26/2021 10:43 AM CDT 06/26/2021 10:43 AM CDT Narrative [facility] - 06/26/2021 12:58 PM CDT PSA NOTE: The PSA value should be used in conjunction with information available from clinical evaluation and other diagnostic procedures. us Jamil Garcia MD CHEMISTRY ORDERABLES Final Re sult [facility] [address] [place] [address] from Last 3 Months or Most Recently Relevant to Health Maintenance Insurance MEDICAID [place] MED[place] C [employer] Care Teams Gas Examiner Relationship Specialty Start Date End Date Gina Cutler DPM Consulting Physician Podiatry 07/07/22 Lamont Freeman MD [address] [place] [address] Consulting Physician Gastroenterology 09/17/22
--- OUTSIDE RECORDS SUMMARY | 2025-04-02 05:27 | XMS_ITS | Encounter Summary ---
Author Organization [facility] Address [address] [facility] [place] [address] Phone Care Team Providers Care Psychological Assistant Name Role Phone Jamil Garcia MD Primary Care Provider [phone] Gina Cutler DPM Unavailable Lamont Freeman MD Unavailable [phone] Shari Arias COMMERCIAL CREDIT PORTFOLIO MANAGER Unavailable Unavailab le Reason for Visit * Reason Comments Medication Refill Encounter Details Date Type Department Care Team (Late st Contact Info) Description 12/28/2022 Refill [facility] [address]2 [place] [phone] Jamil Garcia MD [address] [address] Medication Refill Social History Tobacco Use Types [...] - 19 09/22/2024 09/22/2024 09/22/2024 4:21 PM SMALL ANIMAL CARETAKER Assessment Noted Time PHQ-9 Depression Total Score: 7 10/20/19 23 1:00 PM SMALL ANIMAL CARETAKER documented as of this encounter Care Teams Psychological Assistant Relationship Specialty Start Date End Date Jamil Garcia MD [address] [address] PCP - General Family Medicine 06/26/21 12/17/24 Gina Cutler DPM #[address] [address] Consulting Physician Podiatry 07/07/22 Lamont Freeamn MD #2 [place] [address] Consulting Physician Gastroenterology 09/17/22 Shari Arias LSW [place] Voice Professor Radiology Receptionist 11/15/23 4 documented as of this encounter
--- OUTSIDE RECORDS SUMMARY | 2025-04-02 05:27 | XMS_ITS | Encounter Summary ---
Author Organization [facility] Address [address] [facility] [place] [address] Phone Care Team Providers Care Campaign Specialist Name Role Phone Jamil Garcia MD Primary Care Provider [phone] Gina Cutler DPM Unavailable Lamont Freeman MD Unavailable [phone] Shari Arias MACHINE SHORTHAND TEACHER Unavailable Unavailab le Reason for Visit * Reason Comments Medication Refill Encounter Details Date Type Department Care Team (Late st Contact Info) Description 11/21/2022 Refill [facility] #2 [place] [phone] Jamil Garcia MD [address] [address] Medication Refill Social History Tobacco Use Types [...] Coronavirus/COVID-19? No / Unsure 10/23/2022 1:43 PM ROOF PROMENADE TILE SETTER documented as of this encounter Miscellaneous Notes [...] Dept 10/20/22 Office Visit [facility] [place] 06/17/22 Office Visit Jamil Garcia MD [facility] [place] Showing recent visits within past [...] - 19 09/22/2024 09/22/2024 09/22/2024 4:21 PM ROOF PROMENADE TILE SETTER Assessment Noted Time PHQ-9 Depression Total Score: 7 10/20/19 23 1:00 PM ROOF PROMENADE TILE SETTER documented as of this encounter Care Teams Campaign Specialist Relationship Specialty Start Date End Date Jamil Garcia MD #[address] [address] PCP - General Family Medicine 06/26/21 12/17/24 Gina Cutler DPM #[address] [address] Consulting Physician Podiatry 07/07/22 Lamont Freeman MD [address]2 [place] [address] Consulting Physician Gastroenterology 09/17/22 Shari Arias LSW [place] Ophthalmic Technician Contact Center Representative 11/15/23 4 documented as of this encounter
--- OUTSIDE RECORDS SUMMARY | 2025-04-02 05:28 | XMS_ITS | Encounter Summary ---
Author Organization [facility] Address [address] [facility] [place] [address] Phone Care Team Providers Care Interior Specialist Name Role Phone Jamil Garcia MD Primary Care Provider [phone] Gina Cutler DPM Unavailable Lamont Freeman MD Unavailable [phone] Shari Arias GRINDER HAND Unavailable Unavailab le Reason for Visit * Reason Comments Medication Refill Encounter Details Date Type Department Care Team (Late st Contact Info) Description 03/12/2023 Refill [facility] [address]2 [place] [phone] Jamil Garcia MD [address] [address] Medication Refill Social History Tobacco Use Types [...] [place] 06/17/22 Office Visit Jamil Garcia MD [facility] [place] Showing recent visits within past 365 days and meeting all other requirements Future Appointments Date Type Provider Dept 03/23/23 Appointment Iman Collado MEDICAL EDUCATOR, IT ASSOCIATE [facility] Show[facility] future appointments within next 90 days and meeting all other requirements documented in this encounter Plan of Treatment Not on file documented as of this encounter Visit Diagnoses Not on filedocumented in this encounter Additional Health Concerns Infection Onset Date Last Indicated Resolved Time COVID - 19 09/22/2024 09/22/2024 09/22/2024 4:21 PM SIGN WRITER LETTERER OR PAINTER Assessment Noted Time PHQ-9 Depression Total Score: 7 10/20/19 1:00 PM SIGN WRITER LETTERER OR PAINTER documented as of this encounter Care Teams Interior Specialist Relationship Specialty Start Date End Date Jamil Garcia MD [address] [address] PCP - General Family Medicine 06/26/21 12/17/24 Gina Cutler DPM [address] [address] Consulting Physician Podiatry 07/07/22 Lamont Freeman MD [address]2 [place] [address] Consulting Physician Gastroenterology 09/17/22 Shari Arias LSW [place] Side Sawyer Rubber Stamp Assembler 11/15/23 4 documented as of this encounter
--- OUTSIDE RECORDS SUMMARY | 2025-04-02 05:28 | XMS_ITS | Encounter Summary ---
Author Organization [facility] Address [address] [facility] [place] [address] Phone Care Team Providers Care Special Education Professor Name Role Phone Jamil Garcia MD Primary Care Provider [phone] Gina Cutler DPM Unavailable Lamont Freeman MD Unavailable [phone] Shari Arias FOUNTAIN WORKER Unavailable Unavailab le Reason for Visit * Reason Comments Medication Refill Encounter Details Date Type Department Care Team (Late st Contact Info) Description 02/09/2023 Refill [facility] #2 [place] [phone] Jamil Garcia MD [address] [address] Medication Refill Social History Tobacco Use Types [...] - 19 09/22/2024 09/22/2024 09/22/2024 4:21 PM KEG HEADER Assessment Noted Time PHQ-9 Depression Total Score: 7 10/20/19 1:00 PM KEG HEADER documented as of this encounter Care Teams Special Education Professor Relationship Specialty Start Date End Date Jamil Garcia MD #[address] [address] PCP - General Family Medicine 06/26/21 12/17/24 Gina Cutler DPM #[address] [address] Consulting Physician Podiatry 07/07/22 Lamont Freeman MD [address] [place] [address] Consulting Physician Gastroenterology 09/17/22 Shari Arias LSW [place] Channel Lip Wetter Painter And Decorator 11/15/23 4 documented as of this encounter
[2025-04-02 06:53] VITALS: BP 139/81; PULSE 79; RESP 17; O2SAT 100
--- NOTE | 2025-04-02 06:55 | PC.NURSE ---
This RN spoke with Elizabeth and called for a ride and report of POC
[2025-04-02 06:56] VITALS: BP 139/81; PULSE 79; RESP 17; O2SAT 100
== END 2025-04-02 07:14 | disposition home or self-care (01) ==
PROVIDERS: Emergency Provider Student in an Organized Health Care Education/Training Program
DX: M54.6 Pain in thoracic spine (principal); M54.50 Low back pain, unspecified
CPT/HCPCS: 72128; 72131; 96372; 99284; A9270; J1885